=== PATIENT | male | born 1980 | race Caucasian/White ===

== ENCOUNTER 2019-09-05 13:28 | Emergency (ER) | payer MEDICAID, OTHER ==
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
[2019-09-05 13:48] VITALS: BP 130/82
[2019-09-05] MEDS ORDERED: Tetan/Diph/Pertus SYR(Tdap)* 0.5 ML SYR(BOOSTRIX) use SYR contains LATEX IM ONE (14:04)
== END 2019-09-05 15:06 | disposition home or self-care (01) ==
LOC: UCCORT 13:28
DX: S61.411A Laceration without foreign body of right hand, initial encounter (principal); S60.416A Abrasion of right little finger, initial encounter; S63.91XA Sprain of unspecified part of right wrist and hand, initial encounter; J45.909 Unspecified asthma, uncomplicated; Z88.0 Allergy status to penicillin; W22.09XA Striking against other stationary object, initial encounter; Y92.9 Unspecified place or not applicable
CPT/HCPCS: 90471; 90715; 99213; G0463